=== PATIENT | female | born 1955 | race African-American/Black ===

== ENCOUNTER 2023-05-29 09:19 | Outpatient (CLI) | payer OTHER, MEDICAID ==
[2023-05-29] MEDS ORDERED: Iopamidol 370 76% 100 ML VIAL ONE (10:29)
== END 2023-05-29 09:20 | disposition home or self-care (01) ==
LOC: BICCT 09:19
PROVIDERS: ATTEND Family Medicine
DX: Z12.2 Encounter for screening for malignant neoplasm of respiratory organs (principal); F17.210 Nicotine dependence, cigarettes, uncomplicated; E21.4 Other specified disorders of parathyroid gland; E04.2 Nontoxic multinodular goiter; I65.22 Occlusion and stenosis of left carotid artery; I70.0 Atherosclerosis of aorta; J43.9 Emphysema, unspecified; J98.4 Other disorders of lung
CPT/HCPCS: 70492; 71271; 82565; Q9967

== ENCOUNTER 2023-06-15 09:37 | Outpatient (CLI) | payer OTHER | END 2023-06-15 09:38 | disposition home or self-care (01) | LOC: BICMAMMO 09:37 | PROVIDERS: ATTEND Family Medicine | DX: M85.89 Other specified disorders of bone density and structure, multiple sites (principal) | CPT/HCPCS: 77080 ==

== ENCOUNTER 2023-12-06 07:20 | Outpatient (CLI) | payer OTHER ==
[2023-12-06] MEDS ORDERED: diphenhydrAMINE 25 MG CAP ONE ×2 (09:10→09:37)
[2023-12-06] MEDS ORDERED: Iopamidol 370 76% 100 ML VIAL ONE (12:17)
== END 2023-12-06 07:21 | disposition home or self-care (01) ==
LOC: NM 07:20
PROVIDERS: ATTEND Otolaryngology Otolaryngic Allergy
DX: E21.3 Hyperparathyroidism, unspecified (principal); E07.9 Disorder of thyroid, unspecified; E04.2 Nontoxic multinodular goiter
CPT/HCPCS: 70492; 76536; 78072; 82565; A9500; Q9967

== ENCOUNTER 2024-02-07 11:44 | Emergency (ER) | payer OTHER ==
[2024-02-07] MEDS ORDERED: Bicillin LA 2.4 MILL.UNITS/4 ML SYRINGE ONE (14:24)
== END 2024-02-07 14:40 | disposition home or self-care (01) ==
LOC: ERS 11:44
DX: A53.9 Syphilis, unspecified (principal); I10 Essential (primary) hypertension; F17.210 Nicotine dependence, cigarettes, uncomplicated
CPT/HCPCS: 96372; 99282; J0561